=== PATIENT | female | born 1970 | race African-American/Black ===

== ENCOUNTER 2016-10-24 14:27 | Emergency (ER) | payer MEDICAID ==
[~2016-10-24] VITALS: Ht 172.7 cm; Wt 81.8 kg
[2016-10-24] MEDS ORDERED: CefTRIAXone SODIUM 1 GM/VIAL IM ONE (15:30)
[2016-10-24] MEDS ORDERED: LIDOCAINE HCL/PF 1% 2 ML VIAL IM ONE (15:30)
[2016-10-24 16:02] VITALS: BP 140/86
== END 2016-10-24 16:17 | disposition home or self-care (01) ==
LOC: EMS 14:29
DX: L02.511 Cutaneous abscess of right hand (principal); L03.113 Cellulitis of right upper limb; L29.9 Pruritus, unspecified; L08.9 Local infection of the skin and subcutaneous tissue, unspecified; F17.210 Nicotine dependence, cigarettes, uncomplicated; W57.XXXA Bitten or stung by nonvenomous insect and other nonvenomous arthropods, initial encounter; Y93.89 Activity, other specified; Y99.8 Other external cause status; Y92.89 Other specified places as the place of occurrence of the external cause
CPT/HCPCS: 96372; 99283; J0696; J3490

== ENCOUNTER 2017-02-12 10:44 | Emergency (ER) | payer MEDICAID ==
[~2017-02-12] VITALS: Ht 177.8 cm; Wt 90.9 kg
[2017-02-12 10:48] VITALS: BP 150/107
== END 2017-02-12 11:43 | disposition home or self-care (01) ==
LOC: EMS 10:46
DX: S80.869A Insect bite (nonvenomous), unspecified lower leg, initial encounter (principal); L03.119 Cellulitis of unspecified part of limb; F17.210 Nicotine dependence, cigarettes, uncomplicated; W57.XXXA Bitten or stung by nonvenomous insect and other nonvenomous arthropods, initial encounter; Y93.89 Activity, other specified; Y92.89 Other specified places as the place of occurrence of the external cause; Y99.9 Unspecified external cause status
CPT/HCPCS: 99283

== ENCOUNTER 2018-01-16 13:40 | Emergency (ER) | payer MEDICAID, OTHER ==
[~2018-01-16] VITALS: Ht 175.3 cm; Wt 72.7 kg
[2018-01-16] MEDS ORDERED: SULF1TAB42 PO (14:02)
[2018-01-16] MEDS ORDERED: CEPH250 PO (14:02)
[2018-01-16 18:30] VITALS: BP 127/81
== END 2018-01-16 18:46 | disposition home or self-care (01) ==
LOC: EMS 13:40
DX: S80.11XA Contusion of right lower leg, initial encounter (principal); F17.210 Nicotine dependence, cigarettes, uncomplicated; W19.XXXA Unspecified fall, initial encounter; Y93.89 Activity, other specified; Y92.89 Other specified places as the place of occurrence of the external cause; Y99.8 Other external cause status
CPT/HCPCS: 99284; 99406